=== PATIENT | male | born 1940 | race Caucasian/White ===

== ENCOUNTER 2017-08-08 08:15 | Day surgery (SDC) | payer MEDICARE ==
[2017-08-08 09:06] LABS: Platelet Count 236 k/uL (150-450)
[2017-08-08 09:11] LABS: INR 1.1 (<1.2); Prothrombin Time 10.8 sec (9.0-12.0)
[2017-08-08 09:22] VITALS: RESP 16; TEMP 97.7
[2017-08-08 11:12] VITALS: BP 151/85; PULSE 58
--- NOTE | 2017-08-08 11:12 | CT ---
CT-guided abdominal mass biopsy HISTORY: Abdominal mass DATE OF EXAM: 08/08/2017 COMPARISON: Outside CT 07/22/2017, outside MRI 07/29/2017 Maximal barrier technique was utilized. The skin overlying a suitable path to the lesion was localiz ed using CT and the overlying skin was prepped and draped. Lidocaine used for local anesthesia. A s kin made with a scalpel. Using CT guidance, access was gained to the lesion with [id number], coaxial core specimens obtained with an 18-gauge needle. Core specimens submitted to cytology. 4 passes were performed in all. Following the procedure no immediate complications. The patient is discharged in stable condition. Hemostasis achieved. IMPRESSION: SUCCESSFUL CT GUIDED CORE BIOPSY of abdominal mass. PATHOLOGY PENDING. THIS PROCEDURE WAS PERFORMED BY THE UNDERSIGNED.
== END 2017-08-08 11:25 | disposition home or self-care (01) ==
LOC: RADPROMAIN 08:15
PROVIDERS: ATTEND Nurse Practitioner Adult Health
DX: C49.4 Malignant neoplasm of connective and soft tissue of abdomen (principal)
CPT/HCPCS: 36415; 49180; 85049; 85610; 88305

== ENCOUNTER → 2019-12-18 | Outpatient (CLI) | payer MEDICARE, OTHER ==
--- NOTE | 2019-12-22 09:41 | PE ---
EXAMINATION TYPE: PET CT fusion skull to thigh DATE OF EXAM: 12/18/2019 COMPARISON: Chest radiograph 11/25/2019 Prior PET/CT: None HISTORY: Lung cancer TECHNIQUE: Following the intravenous administration of 10.26 mCi of F-18 FDG, whole body images are performed from the skull base to the midthigh. Images are reviewed on the computer in the coronal, a xial, and sagittal planes. Reconstructed rotating images are created on independent workstation and reviewed on the computer. A localization and attenuation correction CT is performed in conjunction with the PET scan. SCAN: Initial Scan Blood glucose: 91 mg/dL FINDINGS: NECK: No abnormal hypermetabolic activity. THORAX: No pulmonary mass. No abnormal hypermetabolic activity. ABDOMEN/PELVIS: No abnormal hypermetabolic activity. OSSEOUS STRUCTURES: Right shoulder prosthesis with adjacent hypermetabolic activity. No suspicious ab normal hypermetabolic activity or aggressive osseous destructive lesions. Old left rib fracture defor mities, with nonunion of the left rib [address]: Calcified coronary artery disease. 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 Colonic diverticulosis. No acu te diverticulitis. IMPRESSION: 1. No evidence of lung mass or suspicious hypermetabolic activity. 2. To evaluate for subcentimeter pulmonary nodules below PET/CT threshold and resolution, CT examina tion of the chest can be performed, or correlate with any recent outside available CT imaging.
== END | disposition home or self-care (01) ==
LOC: RADPETMAIN 13:28
PROVIDERS: ATTEND Internal Medicine Critical Care Medicine
DX: R91.8 Other nonspecific abnormal finding of lung field (principal)
CPT/HCPCS: 78815; A9552

== ENCOUNTER → 2020-01-26 | Day surgery (SDC) | payer MEDICARE ==
[2020-01-22 10:26] VITALS: BMI 23.7
[~2020-01-26] MED LIST: ALPRAZolam 0.25 MG TAB PO PRN; ALPRAZolam 0.5 MG TAB PO PRN; ASPIRIN 325 MG TAB PO ONE; HEPARIN SODIUM 1,000 UN/ML (10ML VL) IV ONE; IOPAMIDOL-370 125ML BTL INJ ONE; LIDOCAINE 1% INJ 10MG/ML (20 ML MDV) SQ ONE; MIDAZOLAM 2 MG/2 ML VIAL IVP ONE; NITROGLYCERIN SL TABS 0.4 MG TAB SUBLINGUAL PRN; RX INFO: IV CONTRAST WAS GIVEN 1 EACH MISC MISCELLANE PRN; SODIUM CHLORIDE 0.9% 1,000 ML IV ONE; SODIUM CHLORIDE 0.9% 1,000 ML IV SCH; SODIUM CHLORIDE 0.9% 1,000 ML in EMPTY BAG 1 BAG IV ONE; VERAPAMIL SYRINGE (5 MG/10 ML) INTRAARTER ONE; carvediloL 6.25 MG TAB PO ONE; carvediloL 6.25 MG TAB PO SCH; fentaNYL (PF) 50 MCG/ML 2 ML AMP IVP ONE; lisinopriL 5 MG TAB PO ONE; lisinopriL 5 MG TAB PO SCH
[2020-01-26 06:37] VITALS: RESP 18; TEMP 97.6
--- NOTE | 2020-01-26 10:27 | CC ---
CARDIAC CATHETERIZATION REPORT Mr. Stewart is a 79-year-old male with known history of hypertension, symptoms of progressive dyspnea and a history of atrial fibrillation who was found to have evidence of cardiomyopathy and a fixed defect on his nuclear scan. Because of his cardiomyopathy and persistent symptoms, recommendation made regarding cardiac catheterization. The procedures, risks, and complication were discussed with the patient, who is in full understanding and agreement. PROCEDURE: Patient was brought to quality lab technician in a fasting semi-sedated state after receiving fentanyl and Benadryl and achieving moderate conscious sedated state. Using Xylocaine anesthesia and Seldinger technique, a 6-Spanish sheath was introduced in the right radial artery. Selective right and left coronary angiography performed using 5-Spanish 3.5 bend, right and left Steph catheter, multiple views of the coronary artery including hemiaxial views obtained. Following that, a 5-Spanish left Steph was used to cross the aortic valve and left ventricular end-diastolic pressure was calculated. Following that, catheter and sheath were removed. Hemostasis was obtained with deployment of a TR band. There was no immediate complication. Patient is returned to his room in stable condition. Of note, the patient received 4500 units of intravenous heparin as well as intra-arterial verapamil. FINDINGS: LEFT MAIN: This is a short sized vessel, bifurcating into left circumflex, left anterior descending artery. Left main coronary artery has no evidence of high-grade stenosis. LEFT ANTERIOR DESCENDING ARTERY: This is a large-sized vessel, reaching toward the apex with a wraparound apex segment, giving rise to two diagonal branches. The second one is small in caliber. The left anterior descending artery and its branches have no evidence of obstructive coronary artery disease. LEFT CIRCUMFLEX: This is a large dominant vessel giving rise to a large proximal obtuse marginal branch, distally bifurcating into PDA and posterolateral segment and branches. The left circumflex as well as branches have no evidence of obstructive coronary artery disease. RIGHT CORONARY ARTERY: This is a small codominant vessel, giving rise to a small PDA distally. The right coronary artery as well as branches have no evidence of obstructive coronary artery disease. LEFT VENTRICULOGRAM: Left ventriculogram was not performed. HEMODYNAMICS: There was no gradient across the aortic valve. The left ventricular end- diastolic pressure was 12-14 mmHg. CONCLUSION: 1. Normal coronary arteries. 2. Codominant system. RECOMMENDATION: In view of finding anatomy, recommend continue medical therapy with aggressive risk modifications being initiated. The patient will be re-evaluated regarding the need to undergo attempt to restore sinus mechanism. Those findings and recommendation were discussed with the patient and his family who are in full understanding and agreement. Duration of procedure is 13 minutes. KYLAH / CARLEE: [id number] /
[2020-01-26 13:37] VITALS: BP 154/92; PULSE 76
== END | disposition home or self-care (01) ==
LOC: CATHCVL 06:00
PROVIDERS: ATTEND Internal Medicine Interventional Cardiology
DX: R06.00 Dyspnea, unspecified (principal); I42.8 Other cardiomyopathies; I48.11 Longstanding persistent atrial fibrillation; I10 Essential (primary) hypertension; R94.39 Abnormal result of other cardiovascular function study; J44.9 Chronic obstructive pulmonary disease, unspecified; Z79.01 Long term (current) use of anticoagulants; Z79.51 Long term (current) use of inhaled steroids; Z79.899 Other long term (current) drug therapy; Z88.2 Allergy status to sulfonamides; Z98.890 Other specified postprocedural states; Z90.81 Acquired absence of spleen; Z87.19 Personal history of other diseases of the digestive system; Z87.891 Personal history of nicotine dependence
CPT/HCPCS: 93458; C1769; C1894; J2250; J2001; J3010; J1644; Q9967

== ENCOUNTER 2020-10-10 19:10 | Inpatient (IN) | payer MEDICARE, OTHER ==
--- NOTE | 2020-10-10 21:35 | ED ---
SOB HPI - General Chief Complaint: Shortness of Breath Stated Complaint: CVA nSTEMI Time Seen by Provider: 10/10/20 19:27 Source: patient Mode of arrival: ambulatory Limitations: no limitations - History of Present Illness Initial Comments: Ferrara is a 80-year-old male with a history of A. fib who presents to the ER today as a transfer from an outside hospital. Patient has a history of A. fib was previously on Eliquis and B blockers but he decided to stop taking his medications a few weeks ago. He did report that he resumed his medications 3 or 4 days ago. Patient presented to the outside hospital earlier today with a complaint of shortness of breath without any chest pain, cough or wheezing. Patient does have a history of COPD as well as A. fib. He was found to be in A. fib with RVR at the outside hospital with an elevated troponin at 0.11 and a BNP of 1200. There is concerned that he was in heart failure secondary to A. fib RVR. Patient heart rate was in the low 100s and he is on L Jackie so IV medications were not ordered for this. In addition to these complaints patient complained of transient visual loss in his right eye that happened a couple of days ago. 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 This appeared to be acute. Due to the need for evaluation by cardiology as well as neurology patient was transferred to our facility. Upon arrival patient has no complaints, he is in no distress. He does not recall being told that he has had a stroke at the outside hospital. - Related Data Home Medications Medication Instructions Recorded Confirmed Ipratropium-Albuterol Nebulize 3 ml INHALATION RT-TID 08/06/17 10/10/20 [Duoneb 0.5 mg-3 mg/3 ml Soln] Apixaban [Eliquis] 5 mg PO BID 01/22/20 10/10/20 lisinopriL [Zestril] 5 mg PO DAILY 01/22/20 10/10/20 Cholecalciferol (Vitamin D3) 125 mcg PO DAILY 10/10/20 10/10/20 [Vitamin D3 (5000 Iu)] Fluticasone Propion/Salmeterol 1 puff INHALATION RT-BID 10/10/20 10/10/20 [Wixela 500-50 Inhub] predniSONE 5 mg PO DAILY 10/10/20 10/10/20 Allergies Allergy/AdvReac Type Severity Reaction Status Date / Time cephalexin [From Keflex] Allergy Rash/Hives Verified 10/10/20 21:22 Sulfa (Sulfonamide Allergy Rash/Hives Verified 10/10/20 21:22 Antibiotics) Review of Systems ROS Statement: Those systems with pertinent positive or pertinent negative responses have been documented in the HPI. ROS Other: All systems not noted in ROS Statement are negative. Past Medical History Past Medical History: Coronary Artery Disease (CAD), COPD Additional Past Medical History / Comment(s): erectile dysfunction, collapsed lung, broken ribs, recently tired and dizzy History of Any Multi-Drug Resistant Organisms: None Reported Past Surgical History: Hernia Repair, Joint Replacement Additional Past Surgical History / Comment(s): right shoulder replacement, splenectomy, hernia repairs x2 with mesh, Past Anesthesia/Blood Transfusion Reactions: No Reported Reaction Past Psychological History: No Psychological Hx Reported Smoking Status: Former smoker Past Alcohol Use History: None Reported Past Drug Use History: None Reported General Exam - General Exam Comments Initial Comments: Physical Exam GENERAL: Patient is well-developed and well-nourished. Patient is nontoxic and well-hydrated and is in no distress. Sitting in chair with feet elevated in bed, no distress HENT: Normocephalic, Atraumatic. EYES: PERRL, EOMI PULMONARY: Unlabored respirations. CARDIOVASCULAR: Irregular, tachycardic ABDOMEN: Soft and nontender with normal bowel sounds. SKIN: Skin is clear with no lesions or rashes and otherwise unremarkable. : Deferred NEUROLOGIC: Patient is alert and oriented x3 Moving all extremities spontaneously Poor short term memory, confusion about his medical condition MUSCULOSKELETAL: Normal extremities with adequate strength and full range of motion. No lower extremity swelling or edema. No calf tenderness. PSYCHIATRIC: Normal psychiatric evaluation. Limitations: no limitations Course Vital Signs 10/10/20 10/10/20 10/10/20 19:20 20:00 21:00 Temperature 98.2 F Pulse Rate 111 H 111 H 114 H Pulse Rate [ 110 H Product Specialist ] Respiratory 20 20 18 Rate Blood Pressure 133/120 116/78 118/66 O2 Sat by Pulse 96 96 98 Oximetry 10/10/20 22:58 Temperature Pulse Rate 110 H Pulse Rate [ Product Specialist ] Respiratory 20 Rate Blood Pressure 118/91 O2 Sat by Pulse 97 Oximetry Medical Decision Making - Medical Decision Making The patient was seen and evaluated, history is obtained from the patient excited 80-year-old woman with a history of A. fib noncompliant with his medications presented to an outside ER with A. fib RVR and shortness of breath he was found to have some heart failure in addition he is found to have an infarct of the visual cortex which resulted in right eye vision changes Patient was transferred to our hospital for admission and evaluation by cardiology and neurology Repeat labs were obtained, patient was admitted, Dr. Forte was paged for cardiology consult Patient will be admitted for evaluation to cardiology and neurology - Lab Data Result diagrams: 10/10/20 22:37 - EKG Data -: EKG Interpreted by Me EKG Comments: EKG was obtained due to complaint of A. fib, EKG was obtained at 2252 rate is 100 rhythm is atrial fibrillation normal axis normal intervals no acute ST elevations or depressions no evidence of ischemia or infarction Disposition Clinical Impression: Congestive heart failure, CVA (cerebral vascular accident) Disposition: ADMITTED IP TO THIS HOSP Condition: Stable Is patient prescribed a controlled substance at d/c from ED?: No
[2020-10-10] MEDS ORDERED: NALOXONE 0.4 MG/ML 1 ML VIAL IV PRN (22:13)
[2020-10-10] MEDS ORDERED: ASPIRIN 81 MG PO STA (22:14)
[2020-10-10] MEDS ORDERED: ATORVASTATIN 80 MG TAB PO STA (22:14)
[2020-10-10 22:49] LABS: Basophils # (A) 0.1 k/uL (0-0.2); Basophils % (A) 1 %; Eosinophils # (A) 0.1 k/uL (0-0.7); Eosinophils % (A) 1 %; HCT 42.4 % (39.0-53.0); HGB 14.3 gm/dL (13.0-17.5); Lymphocytes # (A) 1.3 k/uL (1.0-4.8); Lymphocytes % (A) 17 %; MCH 33.9 pg (25.0-35.0); MCHC 33.7 g/dL (31.0-37.0); MCV 100.7 fL (80.0-100.0); Macrocytosis Slight; Monocytes # (A) 0.5 k/uL (0-1.0); Monocytes % (A) 6 %; Neutrophils # (A) 5.7 k/uL (1.3-7.7); Neutrophils % (A) 73 %; Platelet Count 195 k/uL (150-450); RBC 4.21 m/uL (4.30-5.90); RDW 13.9 % (11.5-15.5); WBC 7.8 k/uL (3.8-10.6)
[2020-10-10 22:57] LABS: INR 2.2 (<1.2); Partial Thromboplastin Time 49.3 sec (22.0-30.0)
[2020-10-10 23:21] LABS: Calcium 9.4 mg/dL (8.4-10.2); Potassium 4.5 mmol/L (3.5-5.1); Total Bilirubin 0.8 mg/dL (0.2-1.3); Total Protein 6.7 g/dL (6.3-8.2)
[2020-10-11 07:27] LABS: ALT 14 U/L (4-49); AST 25 U/L (17-59)
[2020-10-11 07:31] LABS: INR 1.2 (<1.2); Prothrombin Time 12.4 sec (9.0-12.0)
[2020-10-11] MEDS: FUROSEMIDE 10 MG/ML 4 ML VIAL IV SCH ×2 (08:24→20:10)
[2020-10-11] MEDS ORDERED: carvediloL 6.25 MG TAB PO SCH (08:45)
[2020-10-11] MEDS ORDERED: APIXABAN 5 MG TAB PO SCH (09:00)
[2020-10-11] MEDS ORDERED: METOPROLOL TARTRATE 25 MG TAB PO SCH (09:00)
--- NOTE | 2020-10-11 10:34 | P.CRDCN ---
History of Present Illness History of present illness: HISTORY OF PRESENTING ILLNESS This is a pleasant 80-year-old male past medical history significant for chronic persistent atrial fibrillation, non-ischemic cardiomyopathy, COPD, h ypertension and former nicotine dependence. He follows in the office with Dr. Sky. We have been asked to see in consultation for atrial fibrillation. He presented to ER in [place] with symptoms of right sided vision loss that had been going on for [address] of the brain revealed a left cortical acute infarct. He states he had stopped taking all of his meds for the previous 3ish months because he felt like he didn't need them. On arrival to [place] he was in afib with mildly rapid ventricular rate. Currently he is in afib with rates in the 90's. He denies chest pain, shortness of breath, dizziness or palpitations. CT of the chest at [place] revealed mild blunting of the cost rophrenic angles. REVIEW OF SYSTEMS At the time of my exam: CONSTITUTIONAL: Complains of right sided vision changes. Denies fever or chills. CARDIOVASCULAR: Denies chest pain, shortness of breath, orthopnea, PND or palpitations. RESPIRATORY: Denies cough. GASTROINTESTINAL: Denies abdominal pain, diarrhea, constipation, nausea or vomiting. MUSCULOSKELETAL: Denies myalgias. NEUROLOGIC: Denies numbness, tingling, headacbe or weakness. ENDOCRINE: Denies fatigue, weight change, polydipsia or polyurina. GENITOURINARY: Denies burning, hematuria or urgency with micturation. HEMATOLOGIC: Denies history of anemia or bleeding. PHYSICAL EXAMINATION Blood pressure 123/88 heart rate 56 afebrile and maintaining oxygen saturation on room air. CONSTITUTIONAL: No apparent distress. HEENT: Head is normocephalic. Pupils are equal, round. Sclerae anicteric. Mucous membranes of the mouth are moist. No JVD. No carotid bruit. CHEST EXAMINATION: Bibasilar rales, no wheezes or rhonchi.No chest wall ten derness is noted on palpation or with deep breathing. HEART EXAMINATION: irregular rate and rhythm. S1, S2 heard. Systolic ejection murmur at the base, no gallops or rub. ABDOMEN: Soft, nontender. Positive bowel sounds. EXTREMITIES: 2+ peripheral pulses, no lower extremity edema and no calf tender ness. NEUROLOGIC EXAMINATION: Patient is awake, alert and oriented x3. ASSESSMENT Acute CVA Chronic persistent atrial fibrillation Acute on chronic systolic heart failure COPD Hypertension Former nicotine dependence Medical noncompliance PLAN Initiate IV diuresis. Document accurate intake and output along with daily weights. Follow renal function and electrolytes in the morning. Hold eliquis pending neurology evaluation. Obtain 2D echocardiogram and doppler study to assess cardiac structure and function. Resume coreg and atorvastatin as previously prescribed according to Dr. Sky's records. Resume lisinopril starting tomorrow. Further recommendations to follow based on clinical course. Thank you kindly for this consultation. Nurse Practitioner note has been reviewed, I agree with a documented findings and plan of care. Patient was seen and examined. Past Medical History Past Medical History: Coronary Artery Disease (CAD), COPD Additional Past Medical History / Comment(s): erectile dysfunction, collapsed lung, broken ribs, recently tired and dizzy History of Any Multi-Drug Resistant Organisms: None Reported Past Surgical History: Hernia Repair, Joint Replacement Additional Past Surgical History / Comment(s): right shoulder replacement, splenectomy, hernia repairs x2 with mesh, Past Anesthesia/Blood Transfusion Reactions: No Reported Reaction Past Psychological History: No Psychological Hx Reported Smoking Status: Former smoker Past Alcohol Use History: None Reported Past Drug Use History: None Reported Medications and Allergies Home Medications Medication Instructions Recorded Confirmed Type Ipratropium-Albuterol Nebulize 3 ml INHALATION RT-TID 08/06/17 10/10/20 History [Duoneb 0.5 mg-3 mg/3 ml Soln] Apixaban [Eliquis] 5 mg PO BID 01/22/20 10/10/20 History lisinopriL [Zestril] 5 mg PO DAILY 01/22/20 10/10/20 History Cholecalciferol (Vitamin D3) 125 mcg PO DAILY 10/10/20 10/10/20 History [Vitamin D3 (5000 Iu)] Fluticasone Propion/Salmeterol 1 puff INHALATION RT-BID 10/10/20 10/10/20 History [Wixela 500-50 Inhub] predniSONE 5 mg PO DAILY 10/10/20 10/10/20 History Allergies Allergy/AdvReac Type Severity Reaction Status Date / Time cephalexin [From Keflex] Allergy Rash/Hives Verified 10/10/20 21:22 Sulfa (Sulfonamide Allergy Rash/Hives Verified 10/10/20 21:22 Antibiotics) Physical Exam Vitals: Vital Signs Temp Pulse Pulse Resp BP BP Pulse Ox 10/11/20 04:00 90 132/87 10/11/20 02:45 100 20 10/11/20 00:56 98.0 F 92 20 112/87 96 10/10/20 22:58 110 H 20 118/91 97 10/10/20 22:39 97.9 F 110 H 20 124/91 95 10/10/20 21:00 114 H 18 118/66 98 10/10/20 20:00 111 H 20 116/78 96 10/10/20 19:20 98.2 F 111 H 110 H 20 133/120 96 Intake and Output 10/10/20 10/11/20 10/11/20 22:59 06:59 14:59 Intake Total 240 Balance 240 Intake: Oral 240 Other: Voiding Method Toilet # Voids 3 Weight 79.379 kg 81.3 kg Results 10/10/20 22:37 10/10/20 22:37 Cardiac Enzymes 10/10/20 10/10/20 10/11/20 Range/Units 22:37 22:37 07:00 AST 26 25 (17-59) U/L Troponin I 0.086 H* (0.000-0.034) ng/mL Coagulation 10/10/20 10/11/20 Range/Units 22:37 07:00 PT 21.0 H 12.4 H (9.0-12.0) sec APTT 49.3 H (22.0-30.0) sec CBC 10/10/20 Range/Units 22:37 WBC 7.8 (3.8-10.6) k/uL RBC 4.21 L (4.30-5.90) m/uL Hgb 14.3 (13.0-17.5) gm/dL Hct 42.4 (39.0-53.0) % Plt Count 195 (150-450) k/uL Comprehensive Metabolic Panel 10/10/20 10/11/20 Range/Units 22:37 07:00 Sodium 142 (137-145) mmol/L Potassium 4.5 (3.5-5.1) mmol/L Chloride 108 H (98-107) mmol/L Carbon Dioxide 25 (22-30) mmol/L BUN 28 H (9-20) mg/dL Creatinine 1.60 H (0.66-1.25) mg/dL Glucose 93 (74-99) mg/dL Calcium 9.4 (8.4-10.2) mg/dL AST 26 25 (17-59) U/L ALT 16 14 (4-49) U/L Alkaline Phosphatase 74 (38-126) U/L Total Protein 6.7 (6.3-8.2) g/dL Albumin 4.0 (3.5-5.0) g/dL Current Medications Generic Name Dose Route Start Last Admin Trade Name Freq PRN Reason Stop Dose Admin Naloxone HCl 0.2 mg 10/10/20 22:13 Naloxone 0.4 Mg/Ml 1 Ml Vial IV Q2M PRN Opioid Reversal Intake and Output 10/10/20 10/11/20 10/11/20 22:59 06:59 14:59 Intake Total 240 Balance 240 Intake: Oral 240 Other: Voiding Method Toilet # Voids 3 Weight 79.379 kg 81.3 kg 10/10/20 22:37 10/10/20 22:37
--- NOTE | 2020-10-11 11:36 | ECHOF ---
Referral Reason:sob MEASUREMENTS -------- HEIGHT: 157.5 cm WEIGHT: 81.2 kg BP: RVIDd: 3.3 cm (< 3.3) IVSd: 0.9 cm (0.6 - 1.1) LVIDd: 5.0 cm (3.9 - 5.3) LVPWd: 1.6 cm (0.6 - 1.1) IVSs: 1.3 cm LVIDs: 4.4 cm LVPWs: 1.8 cm Ao Diam: 2.8 cm (2.0 - 3.7) AV Cusp: 1.9 cm (1.5 - 2.6) LA Diam: 4.5 cm (2.7 - 3.8) MV E Miguelito: 1.08 m/s MV DecT: 202 ms MV A Miguelito: 0.45 m/s MV E/A Ratio: 2.37 RAP: 5.00 mmHg RVSP: 17.44 mmHg FINDINGS -------- Atrial fibrillation. This was a techncally difficult study with suboptimal views, , Lumason utilized for enhancement of im ages. The left ventricular size is normal. There is borderline concentric left ventricular hypertrophy. Overall left ventricular systolic function is severely impaired with, an EF between 20 - 25 %. The right ventricle is normal in size. Normal LA size by volume 22+/-6 ml/m2. The right atrial size is normal. 5.0mg OF Lumason UTLIZED: 2 OR MORE WALL SEGMENTS NOT VISUALIZED. There is mild aortic valve sclerosis. There is no evidence of aortic regurgitation. Mild mitral regurgitation is present. Mild tricuspid regurgitation present. Right ventricular systolic pressure is normal at < 35 mmHg. There is no pulmonic regurgitation present. There is no pericardial effusion. CONCLUSIONS -------- 1. This was a techncally difficult study with suboptimal views, , Lumason utilized for enhancement of images. 2. The left ventricular size is normal. 3. There is borderline concentric left ventricular hypertrophy. 4. Overall left ventricular systolic function is severely impaired with, an EF between 20 - 25 %. 5. The right ventricle is normal in size. 6. Normal LA size by volume 22+/-6 ml/m2. 7. The right atrial size is normal. 8. 5.0mg OF Lumason UTLIZED: 2 OR MORE WALL SEGMENTS NOT VISUALIZED. 9. There is mild aortic valve sclerosis. 10. Mild mitral regurgitation is present. 11. Mild tricuspid regurgitation present. 12. There is no pericardial effusion. REHABILITATION TECHNICIAN: Marce Gutierrez RDCS
--- NOTE | 2020-10-11 12:22 | P.CNNES ---
History of Present Illness Consult date: 10/11/20 Requesting physician: Indira Brothers Reason for Consult: Visual cortex stroke on CT History of Present Illness: Patient is a 80-year-old right-handed male with history of atrial fibrillation came to the hospital by ambulance as a transfer from [facility] yesterday at 5:10 PM for cardiology and neurology evaluation for possible CVA. Patient has history of atrial fibrillation, has been on Eliquis since last winter. Patient states that he has been taking so many medications that he decided to quit taking Eliquis about 3 weeks ago. Patient came to the [facility] yesterday at around 2:36 PM because he started feeling dizziness, visual disturbance on the right side, low oxygen and couldn't b reathe. Patient initially went to outside hospital, where he underwent CT head was performed at outside facility, which revealed an infarct in the left occipital visual cortex. This appears to be acute. Patient was therefore transferred to [facility] for cardiology and neurology evaluation. Review of outside records revealed EKG with atrial fibrillation with rapid ventricular rate. Chest x-ray showed old healed posterior left rib fractures involving the left fourth and eighth ribs. Some mild blunting of the left costophrenic sulcus are most likely representing old posttraumatic pleural thickening. Background non-bullous emphysematous changes in the upper lungs old bilaterally. Previous total right shoulder replacement. CT of the head showed regional subacute-appearing infarct involving the left posterior medial left occipital lobe including the left visual cortex. No signs of hemorrhage. Age- related involutional changes generalized cortical and central atrophy with mild compensatory ventricle dilation. There are chronic ischemic periventricular white matter changes in both cerebral hemispheres and most dominant about the anterior and posterior ventricular trigone regions. Mild atherosclerotic calcification within the distal vertebral artery segments bilaterally and both carotid siphons. Patient's blood test showed normal electrolytes, BU and 24, creatinine 1.7. PT 12.4 INR 1.19. CBC normal. Troponin was mildly elevated 0.115. BNP is elevated 1260. Vital signs on arrival blood pressure 133/120, pulse rate 111, temperature 98.2. Blood pressure did improve to 116/78 subsequently. Patient's blood test shows normal CBC with MCV 100.7. INR is 2.2, PTT 49.3 electrolytes are normal, BUN 28, creatinine 1.60. Hepatic panel normal. Troponin is borderline 0.086, Garg virus PCR negative. Patient has history of hypertension denies diabetes. Denies alcohol use. He has smoked 1 ounce tobacco pipe a day for 40 years, quit 1 year ago. Patient's outside medications include prednisone 5 mg every morning, lisinopril 5 mg, carvedilol 6.25 mg, Eliquis 5 mg twice a day, vitamin D3. Patient at present states that his symptoms have resolved. Denies any numbness tingling focal weakness. Denies headache. Denies any visual issues even. Review of Systems Positive for shortness of breath, visual disturbance. No headache. No numbness tingling focal weakness. No chest pain, abdominal pain nausea vomiting diarrhea. No fever or chills. Left shoulder pain due to previous rotator cuff issues. Past Medical History Past Medical History: Coronary Artery Disease (CAD), COPD Additional Past Medical History / Comment(s): erectile dysfunction, collapsed lung, broken ribs, recently tired and dizzy History of Any Multi-Drug Resistant Organisms: None Reported Past Surgical History: Hernia Repair, Joint Replacement Additional Past Surgical History / Comment(s): right shoulder replacement, splenectomy, hernia repairs x2 with mesh, Past Anesthesia/Blood Transfusion Reactions: No Reported Reaction Past Psychological History: No Psychological Hx Reported Smoking Status: Former smoker Past Alcohol Use History: None Reported Past Drug Use History: None Reported Medications and Allergies Home Medications Medication Instructions Recorded Confirmed Type Ipratropium-Albuterol Nebulize 3 ml INHALATION RT-TID 08/06/17 10/10/20 History [Duoneb 0.5 mg-3 mg/3 ml Soln] Apixaban [Eliquis] 5 mg PO BID 01/22/20 10/10/20 History lisinopriL [Zestril] 5 mg PO DAILY 01/22/20 10/10/20 History Cholecalciferol (Vitamin D3) 125 mcg PO DAILY 10/10/20 10/10/20 History [Vitamin D3 (5000 Iu)] Fluticasone Propion/Salmeterol 1 puff INHALATION RT-BID 10/10/20 10/10/20 History [Wixela 500-50 Inhub] predniSONE 5 mg PO DAILY 10/10/20 10/10/20 History Allergies Allergy/AdvReac Type Severity Reaction Status Date / Time cephalexin [From Keflex] Allergy Rash/Hives Verified 10/10/20 21:22 Sulfa (Sulfonamide Allergy Rash/Hives Verified 10/10/20 21:22 Antibiotics) Physical Examination - Vital Signs Vital Signs: Vital Signs Temp Pulse Pulse Resp BP BP Pulse Ox 10/11/20 08:21 97.8 F 56 L 16 123/88 94 L 10/11/20 08:00 56 L 16 10/11/20 04:00 90 132/87 10/11/20 02:45 100 20 10/11/20 00:56 98.0 F 92 20 112/87 96 10/10/20 22:58 110 H 20 118/91 97 10/10/20 22:39 97.9 F 110 H 20 124/91 95 10/10/20 21:00 114 H 18 118/66 98 10/10/20 20:00 111 H 20 116/78 96 10/10/20 19:20 98.2 F 111 H 110 H 20 133/120 96 Intake and Output 10/10/20 10/11/20 10/11/20 22:59 06:59 14:59 Intake Total 240 Balance 240 Intake: Oral 240 Other: Voiding Method Toilet Toilet # Voids 3 Weight 79.379 kg 81.3 kg Patient is an elderly male, who appears slightly short of breath.. Patient is alert awake oriented to time place and person. Patient knows it is October 11 and the year 2020 and that he is in [place] in [place]. Speech and language functions are normal. Attention, concentration and fund of knowledge is adequate for age. On cranial examination, pupils are round and reacting to light, visual steward revealed complete right homonymous hemianopia, extraocular muscles are intact with no nystagmus. Face is symmetric, tongue protrudes to the midline. Palatal elevation and sensation normal, hearing is mildly decreased and shoulder shrug normal, facial sensation normal. Shoulder shrug normal. On muscle strength testing, there is no pronator drift and the strength is normal in arms and legs distally and proximally. Left shoulder slightly weak because of rotator cuff issues. Deep tendon reflexes 1+ in the upper limbs, 1 in the lower limbs and plantars downgoing. Sensory to touch is equal with no neglect on double simultaneous stimulation. Cerebellar function showed no ataxia for [id number] testing. No dysdiadochokinesia. Tone and bulk of muscles normal. Gait deferred. On general examination, there is no carotid bruit or murmur, S1-S2 audible. Abdomen is soft nontender. Chest is clear. Peripheral pulses are present. No edema. 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 Event is most likely embolic from atrial fibrillation. * History of atrial fibrillation, stopped taking Eliquis 3 weeks ago resulting in an acute stroke. * History of tobacco use. * Hypertension * CHF * CAD Plan: * Patient is high risk for recurrent embolic strokes related to atrial fibrillation. May resume Eliquis 5 mg twice a day dose. * We will check carotid Doppler to rule out carotid stenosis. * We will check fasting a.m. lipid panel and hemoglobin A1c. * 2-D echo revealed technically difficult study. Left-ventricular size is normal. Borderline concentric LVH. Overall left-ventricular systolic funct ion is severely impaired with an EF between 20-25%. Normal left atrial size. Mild aortic valve sclerosis. * Patient to abstain from driving because of visual field deficits. May follow up with director sales training for visual field follow-up.
--- NOTE | 2020-10-11 13:11 | US ---
EXAMINATION TYPE: US carotid duplex BILAT DATE OF EXAM: 10/11/2020 COMPARISON: NONE CLINICAL HISTORY: CVA, tobacco use. EXAM MEASUREMENTS: RIGHT: Peak Systolic Velocity (PSV) cm/sec ----- Right CCA: 37.9 ----- Right ICA: 56.5 ----- Right ECA: 33.8 ICA/CCA ratio: 1.5 RIGHT: End Diastole cm/sec ----- Right CCA: 13.7 ----- Right ICA: 29.1 ----- Right ECA: 6.2 LEFT: Peak Systolic Velocity (PSV) cm/sec ----- Left CCA: 36.7 ----- Left ICA: 41.6 ----- Left ECA: 49.4 ICA/CCA ratio: 1.1 LEFT: End Diastole cm/sec ----- Left CCA: 12.8 ----- Left ICA: 13.5 ----- Left ECA: 20.5 VERTEBRALS (direction of flow): Right Vertebral: Antegrade Left Vertebral: Antegrade Rhythm: Normal Mild atherosclerotic changes without ssignificant velocity elevations. IMPRESSION: 1. Mild atherosclerotic change with no significant hemodynamic stenosis. Criteria for Assigning % of Stenosis / Diameter reduction (Estimation based on the indirect measurements of the internal carotid artery velocities (ICA PSV). 1. Normal (no stenosis)=ICA PSV < 125 cm/s: ratio < 2.0: ICA EDV<40 cm/s. 2. Less than 50% stenosis=ICA PSV < 125 cm/s: ratio < 2.0: ICA EDV<40 cm/s. 3. 50 to 69% stenosis=ICA PSV of 125 to 230 cm/s: ration 2.0 ? 4.0: ICA EDV 40-100 cm/s. 4. Greater than 70% stenosis to near occlusion= ICA PSV > 230 cm/s: ratio > 4.0: ICA EDV > 100 cm/s. 5. Near occlusion= ICA PSV velocities may be low or undetectable: variable ratio and ICA EDV. 6. Total occlusion=unable to detect flow.
[2020-10-11] MEDS: carvediloL 6.25 MG TAB PO SCH (17:00)
[2020-10-11 19:31] LABS: Chol/HDL Ratio 4.9
--- NOTE | 2020-10-11 20:08 | P.HPIM ---
History of Present Illness Patient is a pleasant 80-year-old male came in for evaluation for CVA. Patient given with visual disturbance on the right side which is decreased vision was feeling dizzy he which is lightheadedness which is not vertigo. Patient had a CT performed outside of the facility which revealed an infarct in the left occipital cortex consistent with his symptoms. Patient does have history of atrial fibrillation stopped taking his Eliquis 3 weeks ago. Patient was also comparing of shortness of breath and orthopnea as well as paroxysmal nocturnal dyspnea patient does have elevated JVD. Patient had an echocardiogram which showed ejection fraction of 20-25% previous ejection fraction is not on patient is also found to have been dysfunction with creatinine of 42.0 chest come down to 1.6. Patient had a carotid Doppler which did not show any significant abnormal except for mild atherosclerotic carotid vascular disease. REVIEW OF SYSTEMS: CONSTITUTIONAL: No fever, no malaise, no fatigue. HEENT: No recent visual problems or hearing problems. Denied any sore throat. CARDIOVASCULAR: no palpitations, no syncope. PULMONARY: No shortness of breath, no cough, no hemoptysis. GASTROINTESTINAL: No diarrhea, no nausea, no vomiting, no abdominal pain. NEUROLOGICAL: No headaches, no weakness, no numbness. HEMATOLOGICAL: Denies any bleeding or petechiae. GENITOURINARY: Denies any burning micturition, frequency, or urgency. MUSCULOSKELETAL/RHEUMATOLOGICAL: Denies any joint pain, swelling, or any muscle pain. ENDOCRINE: Denies any polyuria or polydipsia. The rest of the 14-point review of systems is negative. PHYSICAL EXAMINATION: GENERAL: The patient is alert and oriented x3, not in any acute distress. Well d eveloped, well nourished. HEENT: Pupils are round and equally reacting to light. EOMI. No scleral icterus. No conjunctival pallor. Normocephalic, atraumatic. No pharyngeal erythema. No thyromegaly. CARDIOVASCULAR: S1 and S2 present. No murmurs, rubs, or gallops. PULMONARY: Chest is clear to auscultation, no wheezing or crackles. ABDOMEN: Soft, nontender, nondistended, normoactive bowel sounds. No palpable organomegaly. MUSCULOSKELETAL: No joint swelling or deformity. EXTREMITIES: No cyanosis, clubbing, or pedal edema. NEUROLOGICAL: Gross neurological examination did not reveal any focal deficits. His visual acuity improved SKIN: No rashes. Assessment and plan Acute cerebrovascular accident involving the left occipital lobe and right visual disturbance. This is secondary to not being on anticoagulation. Patient is resumed on Eliquis 5 mg twice a day. -Atrial fibrillation presently rate controlled -Shortness of breath: Secondary to congestive heart failure chronic systolic dy sfunction EF of around 20-25% with acute exacerbation patient is on IV Lasix at 40 mg IV twice a day which will continue -COPD without any acute exacerbation -Renal failure: Unsure whether patient has acute renal failure on chronic kidney disease as I do not have baseline creatinine I'm expecting this to improve with IV Lasix a believe patient has fairly azotemia from congestive heart heart failure and volume overload -Hypertension -Coronary artery disease Past Medical History Past Medical History: Coronary Artery Disease (CAD), COPD Additional Past Medical History / Comment(s): erectile dysfunction, collapsed lung, broken ribs, recently tired and dizzy History of Any Multi-Drug Resistant Organisms: None Reported Past Surgical History: Hernia Repair, Joint Replacement Additional Past Surgical History / Comment(s): right shoulder replacement, spl enectomy, hernia repairs x2 with mesh, Past Anesthesia/Blood Transfusion Reactions: No Reported Reaction Past Psychological History: No Psychological Hx Reported Smoking Status: Former smoker Past Alcohol Use History: None Reported Past Drug Use History: None Reported Medications and Allergies Home Medications Medication Instructions Recorded Confirmed Type Ipratropium-Albuterol Nebulize 3 ml INHALATION RT-TID 08/06/17 10/10/20 History [Duoneb 0.5 mg-3 mg/3 ml Soln] Apixaban [Eliquis] 5 mg PO BID 01/22/20 10/10/20 History lisinopriL [Zestril] 5 mg PO DAILY 01/22/20 10/10/20 History Cholecalciferol (Vitamin D3) 125 mcg PO DAILY 10/10/20 10/10/20 History [Vitamin D3 (5000 Iu)] Fluticasone Propion/Salmeterol 1 puff INHALATION RT-BID 10/10/20 10/10/20 History [Wixela 500-50 Inhub] predniSONE 5 mg PO DAILY 10/10/20 10/10/20 History Allergies Allergy/AdvReac Type Severity Reaction Status Date / Time cephalexin [From Keflex] Allergy Rash/Hives Verified 10/10/20 21:22 Sulfa (Sulfonamide Allergy Rash/Hives Verified 10/10/20 21:22 Antibiotics) Physical Exam Vitals: Vital Signs Temp Pulse Pulse Resp BP BP Pulse Ox 10/11/20 16:00 98.0 F 95 16 119/73 99 10/11/20 13:14 98 16 10/11/20 12:00 97.9 F 98 16 144/100 96 10/11/20 08:21 97.8 F 98 16 123/88 94 L 10/11/20 08:00 56 L 16 10/11/20 04:00 90 132/87 10/11/20 02:45 100 20 10/11/20 00:56 98.0 F 92 20 112/87 96 10/10/20 22:58 110 H 20 118/91 97 10/10/20 22:39 97.9 F 110 H 20 124/91 95 10/10/20 21:00 114 H 18 118/66 98 Intake and Output 10/11/20 10/11/20 10/11/20 06:59 14:59 22:59 Intake Total 240 480 Balance 240 480 Intake: Oral 240 480 Other: Voiding Method Toilet Toilet # Voids 3 1 Weight 81.3 kg Results CBC & Chem 7: 10/10/20 22:37 10/10/20 22:37 Labs: Abnormal Lab Results - Last 24 Hours (Table) 10/10/20 10/10/20 10/10/20 Range/Units 22:37 22:37 22:37 RBC 4.21 L (4.30-5.90) m/uL MCV 100.7 H (80.0-100.0) fL PT 21.0 H (9.0-12.0) sec INR 2.2 H (<1.2) APTT 49.3 H (22.0-30.0) sec Chloride 108 H (98-107) mmol/L BUN 28 H (9-20) mg/dL Creatinine 1.60 H (0.66-1.25) mg/dL Troponin I (0.000-0.034) ng/mL HDL Cholesterol (40.0-60.0) mg/dL 10/10/20 10/11/20 10/11/20 Range/Units 22:37 07:00 07:00 RBC (4.30-5.90) m/uL MCV (80.0-100.0) fL PT 12.4 H (9.0-12.0) sec INR 1.2 H (<1.2) APTT (22.0-30.0) sec Chloride (98-107) mmol/L BUN (9-20) mg/dL Creatinine (0.66-1.25) mg/dL Troponin I 0.086 H* (0.000-0.034) ng/mL HDL Cholesterol 29.0 L (40.0-60.0) mg/dL Thrombosis Risk Factor Assmnt - Choose All That Apply Any of the Below Risk Factors Present?: Yes Each Factor Represents 1 point: Abnormal pulmonary function (COPD) Other Risk Factors: Yes Each Risk Factor Represents 3 Points: Age 75 years or older Other congenital or acquired thrombophilia - If yes, enter type in comment: No Thrombosis Risk Factor Assessment Total Risk Factor Score: 4 Thrombosis Risk Factor Assessment Level: Moderate Risk
[2020-10-11] MEDS: APIXABAN 5 MG TAB PO SCH (20:10)
--- NOTE | 2020-10-11 22:19 | XR ---
EXAMINATION TYPE: XR chest 2V DATE OF EXAM: 10/11/2020 COMPARISON: Yesterday HISTORY: Short of breath TECHNIQUE: FINDINGS: Heart appears enlarged. There is no gross heart failure. There is slight blunting left cost ophrenic angle. There are multiple old left-sided rib fractures. There is right shoulder prosthesis. There are no hilar masses. IMPRESSION: Small left pleural effusion unchanged. No obvious heart failure. Stable cardiomegaly. The re is probably some COPD.
[2020-10-11] MEDS ORDERED: lisinopriL 5 MG TAB PO SCH (23:32)
[2020-10-12] MEDS: carvediloL 6.25 MG TAB PO SCH (06:27)
[2020-10-12 08:09] VITALS: RESP 18
[2020-10-12] MEDS: FUROSEMIDE 10 MG/ML 4 ML VIAL IV SCH (08:11)
[2020-10-12] MEDS: APIXABAN 5 MG TAB PO SCH (08:11)
[2020-10-12] MEDS ORDERED: lisinopriL 5 MG TAB PO SCH ×2 (09:00)
[2020-10-12 10:26] LABS: Calcium 9.4 mg/dL (8.4-10.2); Potassium 3.6 mmol/L (3.5-5.1)
[2020-10-12] MEDS ORDERED: carvediloL 6.25 MG TAB PO STA (12:00)
--- NOTE | 2020-10-12 12:02 | P.PN ---
Subjective HISTORY OF PRESENTING ILLNESS This is a pleasant 80-year-old male past medical history significant for chronic persistent atrial fibrillation, non-ischemic cardiomyopathy, COPD, hypertension and former nicotine dependence. He follows in the office with Dr. Sky. We have been asked to see in consultation for atrial fibrillation. He presented to ER in [place] with symptoms of right sided vision loss that had been going on for [address] of the brain revealed a left cortical acute infarct. He states he had stopped taking all of his meds for the previous 3ish months because he felt like he didn't need them. On arrival to [place] he was in afib with mildly rapid ventricular rate. Currently he is in afib with rates in the 90's. He denies chest pain, shortness of breath, dizziness or palpitations. CT of the chest at [place] revealed mild blunting of the costrophrenic angles. 10/12/2020 Pt seen and examined resting comfortably laying flat in bed in no acute distress. He states he slept well. He denies chest pain, shortness of breath, dizziness or palpitations. Blood pressure 130/91 heart rate mostly in the 90s. He is in afib. Laboratory data reviewed, sodium 144, potassium 3.6, creatinine 1.9. Eliquis has been resumed per neurology. Repeat chest x-ray reveals small left pleural effusion unchanged with no obvious heart failure and underlying COPD. Echocardiogram obtained reveals impaired LV systolic function with ejection fraction 20-25%, mild MR and mild TR noted. PHYSICAL EXAMINATION CONSTITUTIONAL: No apparent distress. HEENT: Head is normocephalic. Pupils are equal, round. Sclerae anicteric. Mucous membranes of the mouth are moist. No JVD. No carotid bruit. CHEST EXAMINATION: Clear to auscultation bilaterally, diminished. No wheezes, rhonchi or rales. No chest wall tenderness is noted on palpation or with deep breathing. HEART EXAMINATION: Irregular rate and rhythm. S1, S2 heard. Systolic ejection murmur at the base, no gallops or rub. EXTREMITIES: 2+ peripheral pulses, no lower extremity edema and no calf tenderness. ASSESSMENT Acute CVA Chronic persistent atrial fibrillation Acute on chronic systolic heart failure Acute kidney injury COPD Hypertension Former nicotine dependence Medical noncompliance PLAN Transition to oral diuretics. Increase coreg to 12.5 mg BID. Continue eliquis 5 mg BID for thromboembolic protection. Discussed with the patient the importance of medication compliance. Follow up with Dr. Sky upon discharge, he should be considered for implanta tion of AICD. This can be discussed further in the office. We will follow along as needed, please call with further questions or concerns. Nurse Practitioner note has been reviewed, I agree with a documented findings and plan of care. Patient was seen and examined. Objective - Vital Signs Vital signs: Vital Signs Temp 98.0 F 10/12/20 08:08 Pulse 102 H 10/12/20 08:08 Resp 18 10/12/20 08:08 BP 130/91 10/12/20 08:08 Pulse Ox 93 L 10/12/20 08:08 Intake & Output 10/11/20 10/12/20 10/12/20 18:59 06:59 18:59 Intake Total 480 240 Balance 480 240 Weight 78.6 kg Intake: Oral 480 240 Other: Voiding Method Toilet Toilet # Voids 1 1 - Labs CBC & Chem 7: 10/10/20 22:37 10/12/20 09:20 Labs: Abnormal Lab Results - Last 24 Hours (Table) 10/11/20 10/12/20 Range/Units 07:00 09:20 Carbon Dioxide 36 H (22-30) mmol/L BUN 37 H (9-20) mg/dL Creatinine 1.90 H (0.66-1.25) mg/dL HDL Cholesterol 29.0 L (40.0-60.0) mg/dL
[2020-10-12 12:23] VITALS: BP 111/82; PULSE 95; TEMP 98.1
--- NOTE | 2020-10-12 14:30 | P.DS ---
Providers Date of admission: 10/10/20 22:13 Attending physician: Yonny Bauer MD Consults: 10/10/20 22:13 Consult Physician Urgent Consulting Provider: Burak Forte Consult Reason/Comments: rvr, elevated trop Do you want consulting provider notified?: Yes 10/10/20 22:14 Consult Physician Urgent Consulting Provider: Brian Khan Consult Reason/Comments: visual cortex stroke on ct Do you want consulting provider notified?: Yes Primary care physician: Roshan Karolina [facility] Course: Patient is a pleasant 80-year-old male came in for evaluation for CVA. Patient given with visual disturbance on the right side which is decreased vision was feeling dizzy he which is lightheadedness which is not vertigo. Patient had a CT performed outside of the facility which revealed an infarct in the left occipital cortex consistent with his symptoms. Patient does have history of atrial fibrillation stopped taking his Eliquis 3 weeks ago. Patient was also comparing of shortness of breath and orthopnea as well as paroxysmal nocturnal dyspnea patient does have elevated JVD. Patient had an echocardiogram which showed ejection fraction of 20-25% previous ejection fraction is not on patient is also found to have been dysfunction with creatinine of 42.0 chest come down to 1.6. Patient had a carotid Doppler which did not show any significant abnormal except for mild atherosclerotic carotid vascular disease. 10/12/2020 Patient's visual symptoms improved at this time patient was resumed on Eliquis. Patient is being discharged today. Patient was transitioned to oral Lasix. Patient has worsening serum creatinine up to 1.9 basic metabolic profile will be obtained as an outpatient. Neurology is recommending a repeat CT to rule out any intracranial hemorrhage. After that CT if it's negative for any intracranial hemorrhage patient will be discharged today patient is fairly euvolemic. Pacemaker or AICD decisions as per cardiology. PHYSICAL EXAMINATION: GENERAL: The patient is alert and oriented x3, not in any acute distress. Well developed, well nourished. HEENT: Pupils are round and equally reacting to light. EOMI. No scleral icterus. No conjunctival pallor. Normocephalic, atraumatic. No pharyngeal erythema. No thyromegaly. CARDIOVASCULAR: S1 and S2 present. No murmurs, rubs, or gallops. PULMONARY: Chest is clear to auscultation, no wheezing or crackles. ABDOMEN: Soft, nontender, nondistended, normoactive bowel sounds. No palpable organomegaly. MUSCULOSKELETAL: No joint swelling or deformity. EXTREMITIES: No cyanosis, clubbing, or pedal edema. NEUROLOGICAL: Gross neurological examination did not reveal any focal deficits. His visual acuity improved SKIN: No rashes. Assessment and plan Acute cerebrovascular accident involving the left occipital lobe and right visual disturbance. This is secondary to not being on anticoagulation. Patient is resumed on Eliquis 5 mg twice a day. -Atrial fibrillation presently rate controlled -Shortness of breath: Secondary to congestive heart failure chronic systolic dysfunction EF of around 20-25% with acute exacerbation patient is on IV Lasix at 40 mg IV twice a day which will continue -COPD without any acute exacerbation -Renal failure: Unsure whether patient has acute renal failure on chronic kidney disease patient's creatinine is bit worse today secondary to possible excess diuresis diuretics are being cut down to 40 mg oral daily and repeat basic metabolic profile will be often as an outpatient. -Hypertension -Coronary artery disease Patient Condition at Discharge: Stable Plan - Discharge Summary Discharge Rx Participant: No New Discharge Prescriptions: New Furosemide [Lasix] 40 mg PO DAILY #30 tab carvediloL [Coreg*] 12.5 mg PO BID-W/MEALS #60 tab Continue Ipratropium-Albuterol Nebulize [Duoneb 0.5 mg-3 mg/3 ml Soln] 3 ml INHALATION RT-TID lisinopriL [Zestril] 5 mg PO DAILY Apixaban [Eliquis] 5 mg PO BID predniSONE 5 mg PO DAILY Cholecalciferol (Vitamin D3) [Vitamin D3 (5000 Iu)] 125 mcg PO DAILY Fluticasone Propion/Salmeterol [Wixela 500-50 Inhub] 1 puff INHALATION RT-BID Discharge Medication List Ipratropium-Albuterol Nebulize [Duoneb 0.5 mg-3 mg/3 ml Soln] 3 ml INHALATION RT-TID 08/06/17 [History] Apixaban [Eliquis] 5 mg PO BID 01/22/20 [History] lisinopriL [Zestril] 5 mg PO DAILY 01/22/20 [History] Cholecalciferol (Vitamin D3) [Vitamin D3 (5000 Iu)] 125 mcg PO DAILY 10/10/20 [History] Fluticasone Propion/Salmeterol [Wixela 500-50 Inhub] 1 puff INHALATION RT-BID 10/10/20 [History] predniSONE 5 mg PO DAILY 10/10/20 [History] Furosemide [Lasix] 40 mg PO DAILY #30 tab 10/12/20 [Rx] carvediloL [Coreg*] 12.5 mg PO BID-W/MEALS #60 tab 10/12/20 [Rx] Follow up Appointment(s)/Referral(s): Zach Sky MD [STAFF PHYSICIAN] - 2 Weeks Roshan Turcios MD [Primary Care Provider] - 3 Days Discharge Disposition: HOME SELF-CARE
--- NOTE | 2020-10-12 15:08 | P.PN ---
Subjective Progress Note Date: 10/12/20 Patient was seen for a follow-up. States not feeling very well. States he could be feeling better. He could not explain anymore. Patient's asking if he should get a pacemaker. I suggested that I would defer it to cardiology. Denies any new focal symptoms. Complains of some headache, but not too bad. Telemetry monitoring showing atrial fibrillation with heart rate in 90s. Objective - Vital Signs Vital signs: Vital Signs Temp 98.1 F 10/12/20 12:22 Pulse 95 10/12/20 14:00 Resp 18 10/12/20 14:00 BP 111/82 10/12/20 12:22 Pulse Ox 100 10/12/20 12:22 Intake & Output 10/11/20 10/12/20 10/12/20 18:59 06:59 18:59 Intake Total 480 240 Balance 480 240 Weight 78.6 kg Intake: Oral 480 240 Other: Voiding Method Toilet Toilet # Voids 1 1 - Exam Patient's mental status, speech and language functions are normal. Cranial nerves significant for right visual field deficit, complete, homonymous. Patient has mild left decreased nasolabial fold. Mild left pronation no drift. Strength is normal. No ataxia. Patient appears to be slightly short of breath. Appears cachectic. 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 Event is most likely embolic from atrial fibrillation. * History of atrial fibrillation, stopped taking Eliquis 3 weeks ago resulting in an acute stroke. * History of tobacco use. * Hypertension * CHF * CAD Plan: * Continue Eliquis 5 mg twice a day dose. * Repeat computed tomography scan of head to rule out any hemorrhagic conversion. If negative, then clear for discharge. * Carotid Doppler revealed mild atherosclerotic change with no significant hemodynamic stenosis. * Fasting a.m. lipid panel revealed total cholesterol 142, LDL 96, HDL 29 and triglycerides 85. We will start Lipitor 20 mg daily. * Hemoglobin A1c 5.0 normal. * 2-D echo revealed technically difficult study. Left-ventricular size is normal. Borderline concentric LVH. Overall left-ventricular systolic function is severely impaired with an EF between 20-25%. Normal left atrial size. Mild aortic valve sclerosis. * Patient to abstain from driving because of visual field deficits. May follow up with auction block clerk for visual field follow-up. CT head reviewed. Appears stable, with evolving/maturing stroke. No hemorrhage . Neurologically clear for discharge.
--- NOTE | 2020-10-12 15:14 | CT ---
EXAMINATION TYPE: CT brain wo con DATE OF EXAM: 10/12/2020 COMPARISON: 10/10/[address] brain INDICATION: Follow up CVA, Rule out bleed DLP: 1165.4 mGycm, Automated exposure control for dose reduction was used. CONTRAST: None CT of the brain is performed utilizing 3 mm thick sections through the posterior fossa and 3 mm thick sections through the remaining calvarium. Study is performed within 24 hours of arrival to the hosp [facility]. No abnormal hyperdensity is present to suggest an acute intracranial hemorrhage. No mass lesion is evident. There is a subacute left occipital lobe infarct. There is local effacement of sulci. No midline shift is evident. No subfalcine herniation is evident. There is some mild periventricular white matter change greater in the posterior regions bilaterally. Findings could be related to microvascular ischemic change. Ventricles and sulci are prominent for the patient age. Paranasal sinuses and mastoid air cells within the [id number] are clear. IMPRESSIONS: 1. Subacute infarct left occipital lobe. This appears to have some maturation without interval hemo rrhage. 2. Atrophy with chronic appearing periventricular white matter ischemic changes.
[2020-10-12] MEDS ORDERED: carvediloL 12.5 MG TAB PO SCH (17:30)
[2020-10-12] MEDS ORDERED: ATORVASTATIN 20 MG TAB PO SCH (21:00)
[2020-10-13] MEDS ORDERED: FUROSEMIDE 40 MG TAB PO SCH (09:00)
== END 2020-10-12 17:08 | disposition home or self-care (01) | DRG 64 ==
LOC: EC 19:10 → 3SCARD 22:13
PROVIDERS: ADMIT Internal Medicine; ATTEND Internal Medicine
DX: I63.432 Cerebral infarction due to embolism of left posterior cerebral artery (principal); I50.23 Acute on chronic systolic (congestive) heart failure; H53.121 Transient visual loss, right eye; J98.19 Other pulmonary collapse; I42.8 Other cardiomyopathies; I48.19 Other persistent atrial fibrillation; N17.9 Acute kidney failure, unspecified; I11.0 Hypertensive heart disease with heart failure; G31.89 Other specified degenerative diseases of nervous system; I65.29 Occlusion and stenosis of unspecified carotid artery; I25.10 Atherosclerotic heart disease of native coronary artery without angina pectoris; N52.9 Male erectile dysfunction, unspecified; R42 Dizziness and giddiness; J44.9 Chronic obstructive pulmonary disease, unspecified; Z79.01 Long term (current) use of anticoagulants; Z79.899 Other long term (current) drug therapy; Z90.81 Acquired absence of spleen; Z96.611 Presence of right artificial shoulder joint; Z91.14 Patient's other noncompliance with medication regimen; Z91.19 Patient's noncompliance with other medical treatment and regimen; Z87.891 Personal history of nicotine dependence; Z87.19 Personal history of other diseases of the digestive system
CPT/HCPCS: 70450; 71046; 80048; 80053; 80061; 83036; 83880; 84450; 84460; 84484; 85025; 85610; 85730; 87635; 93005; 93306; 93880; 99285

== ENCOUNTER → 2021-08-10 | Outpatient (CLI) | payer MEDICARE, OTHER ==
[2021-08-10 14:55] LABS: ABG Base Excess 7.9 mmol/L; ABG HCO3 33 mmol/L (21-25); ABG Oxygen Saturation 94.4 % (94-97); ABG PCO2 53 mmHg (35-45); ABG PO2 69 mmHg (83-108); ABG TCO2 34 mmol/L (19-24); Allen Test Performed? Yes
== END | disposition home or self-care (01) ==
LOC: LABWHC1 14:35
PROVIDERS: ATTEND Internal Medicine Critical Care Medicine
DX: J44.9 Chronic obstructive pulmonary disease, unspecified (principal)
CPT/HCPCS: 36600; 82805

== ENCOUNTER → 2021-09-21 | Outpatient (CLI) | payer MEDICARE, OTHER ==
--- NOTE | 2021-09-22 09:02 | CA ---
Transthoracic Echo Report Name: Josias Stewart Age: 81 Gender: M : 1940 Exam Date: 09/21/2021 16:15 Exam Location: [facility] Ht (in): 71 Wt (lb): 185 Ordering Physician: Dex Khan DO Attending/Referring Phys: Social Science Instructor Bibi Oneal RDCS Procedure CPT: Indications: COPD J44.9 Cardiac Hx: Technical Quality: Fair Contrast 1: Total Dose (mL): Contrast 2: Total Dose (mL): MEASUREMENTS (Male / Female) Normal Values 2D ECHO LV Diastolic Diameter PLAX 3.8 cm 4.2 - 5.9 / 3.9 - 5.3 cm LV Systolic Diameter PLAX 3.1 cm IVS Diastolic Thickness 1.3 cm 0.6 - 1.0 / 0.6 - 0.9 cm LVPW Diastolic Thickness 1.3 cm 0.6 - 1.0 / 0.6 - 0.9 cm LV Relative Wall Thickness 0.7 RV Internal Dim ED PLAX 3.2 cm LV Diastolic Volume MOD 4C 80.1 cm??? LV Diastolic Length 4C 7.7 cm LA Volume 86.8 cm??? 18 - 58 / 22 - 52 cm??? M-MODE Aortic Root Diameter MM 3.1 cm LA Systolic Diameter MM 4.3 cm LA Ao Ratio MM 1.4 AV Cusp Separation MM 1.2 cm DOPPLER AV Peak Velocity 138.5 cm/s AV Peak Gradient 7.7 mmHg LVOT Peak Velocity 75.4 cm/s LVOT Peak Gradient 2.3 mmHg TR Peak Velocity 217.0 cm/s TR Peak Gradient 18.8 mmHg Right Ventricular Systolic Press 22.0 mmHg FINDINGS Left Ventricle Mildly increased left ventricular wall thickness. There appears to be hypokinesis of the inferobasal and inferoseptal area. Overall left ventricular function is impaired with ejection fraction about 50% Right Ventricle Normal right ventricular size. Right ventricular systolic pressure within normal limits. Right Atrium Normal right atrial size. Left Atrium Severely increased left atrial volume. No evidence for an atrial septal defect. Mitral Valve Mild mitral annular calcification. Moderate mitral regurgitation. Aortic Valve No aortic valve stenosis or regurgitation. Tricuspid Valve Mild tricuspid regurgitation. Pulmonic Valve Pulmonic valve not well visualized. Trace pulmonic regurgitation. Pericardium No pericardial effusion. Aorta Normal size aortic root and proximal ascending aorta. CONCLUSIONS #1. Normal left ventricular size with mild concentric hypertrophy. Left ventricular function is fair with ejection fraction about 50%. There appears to be hypokinesis of the inferoseptal and inferobasal segments. #2. Moderate left atrial enlargement #3. Moderate mitral and mild tricuspid regurgitation Previewed by: Dr. Eloisa Leblanc MD (Electronically Signed) Final Date: 22 September 2021 09:02
== END | disposition home or self-care (01) ==
LOC: RADECHMAIN 16:09
PROVIDERS: ATTEND Internal Medicine Critical Care Medicine
DX: I08.8 Other rheumatic multiple valve diseases (principal)
CPT/HCPCS: 93306

== ENCOUNTER → 2021-11-10 | Outpatient (CLI) | payer MEDICARE, OTHER ==
--- NOTE | 2021-11-10 16:26 | CT ---
EXAMINATION TYPE: High resolution CT chest DATE OF EXAM: 11/10/2021 COMPARISON: 08/07/2011 HISTORY: 81-year-old male COPD. [place] protocol. TECHNIQUE: High-resolution CT chest without IV contrast. Coronal and sagittal reconstructions perform ed. Both supine and prone imaging was performed. CT DLP: 1447.2 mGycm Automated exposure control for dose reduction was used. FINDINGS: Heart normal size without pericardial effusion. LAD and circumflex coronary calcifications are presen t. Ectatic aortic root at 3.8 cm. Scattered monomorphic scattered calcifications throughout the thoracic aorta. Borderline sized right and left pulmonary arteries measuring up to 2.6 cm may reflect underlying pulm onary arterial hypertension. Scattered nonenlarged mediastinal lymph nodes. No thoracic lymphadenopathy. CT size criteria. There is moderate upper lung centrilobular emphysema. Strandy scarring, atelectasis, and reticulation s within the mid and lower lungs suggesting some mild fibrosis. Pleural parenchymal scarring peripher al left base on a post traumatic basis. Mild diffuse bronchial wall thickening. No consolidation or p leural effusion. Tiny hiatal hernia. A nodule posterior to the fundus of the stomach in the left upper quadrant likel y represents a small splenule. Spleen not seen. Additional splenule suspected left subphrenic region. No osseous destructive process. Old left posterior rib fracture deformities. Partially visualized ri ght shoulder arthroplasty. IMPRESSION: 1. COPD WITH MODERATE UPPER LUNG EMPHYSEMA. POSSIBLE UNDERLYING PULMONARY ARTERIAL HYPERTENSION. 2. MILD INTERSTITIAL FIBROSIS IN THE LOWER LUNGS ALONG WITH LEFT BASILAR PLEURAL PARENCHYMAL SCARRING . 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 3. TINY HIATAL HERNIA.
== END | disposition home or self-care (01) ==
LOC: RADCTMAIN 11:01
PROVIDERS: ATTEND Internal Medicine Critical Care Medicine
DX: J43.9 Emphysema, unspecified (principal); K44.9 Diaphragmatic hernia without obstruction or gangrene
CPT/HCPCS: 71250